=== PATIENT | female | born 1970 | race African-American/Black ===

== ENCOUNTER 2020-01-03 22:15 | Emergency (ER) | payer OTHER ==
[~2020-01-03] VITALS: Ht 165.1 cm; Wt 76.7 kg
[2020-01-03 22:31] VITALS: BP 135/51
--- NOTE | 2020-01-03 22:35 | NUR ---
PT AMBULATED TO RESTROOM WITH STEADY GAIT.
--- NOTE | 2020-01-03 22:45 | NUR ---
49 Y/O FEMALE PRESENTED TO C/O LT SIDED RIB PAIN X 3 DAYS. PT DENIES ANY TRUAMA OR INJURY TO LT SIDE. PT STATES SHE THINKS SHE MIGHT HAVE SLEPT WRONG AND TWEAKED A MUSCLE. PT STATES HER PAIN IS MORE MUSCLE PAIN THAN IN THE BONE. PT RATES PAIN 10/10 , NONRADIATING , SHARP PAIN. RR EVEN AND UNLABORED. BL CLEAR LUNG SOUNDS THROUGHOUT. PT STATES SHE HAS BEEN TAKING LIDOCAINE CREAM AND PATCHES W/ NO RELIEF. PT RESTING IN BED , LOCKED AND IN LOWEST POSITION, HOB ELEVATED, SIDE RAIL X1. VSS. PMH: ASTHMA, HTN, BOWEL OBSTRUCTION AX: IBUPROFEN
--- NOTE | 2020-01-03 23:03 | NUR ---
PT TAKEN TO XRAY VIA W/C
--- NOTE | 2020-01-03 23:35 | NUR ---
ERMD AT BEDSIDE FOR MEDICAL EVALUATION
--- NOTE | 2020-01-03 23:35 | NUR ---
EMT AT BEDSIDE FOR EKG.
--- NOTE | 2020-01-03 23:45 | NUR ---
LAB AT BEDSIDE .
--- NOTE | 2020-01-03 23:51 | NUR ---
PT STATES HER CURRENT PAIN 01/02 , ERMD MADE AWARE OF PT PAIN. PER ILIANAD ADMINISTER 30 MG IM TORADOL.
[2020-01-03] MEDS ORDERED: KETOROLAC 30 MG/ML VIAL IM ONE (23:55)
[2020-01-03 23:59] LABS: BASOPHILS # (AUTO) 0.1 K/uL (0.00-0.22); BASOPHILS % (AUTO) 0.9 % (0.0-2.0); EOSINOPHILS # (AUTO) 0.1 K/uL (0-0.4); EOSINOPHILS % (AUTO) 1.8 % (0.0-4.0); HEMATOCRIT 34.9 % (36-48); HEMOGLOBIN 11.4 g/dL (12.0-16.0); LYMPHOCYTES # (AUTO) 2.9 K/uL (2.5-16.5); LYMPHOCYTES % (AUTO) 41.6 % (20.5-51.1); MEAN CORPUSCULAR HEMOGLOBIN 28 pg (27-31); MEAN CORPUSCULAR HGB CONC 33 g/dL (33-37); MEAN CORPUSCULAR VOLUME 86.8 fL (80-94); MONOCYTES # (AUTO) 0.5 K/uL (0.8-1.0); MONOCYTES % (AUTO) 7.6 % (1.7-9.3); NEUTROPHILS # (AUTO) 3.3 K/uL (1.8-7.7); NEUTROPHILS % (AUTO) 48.1 % (42.2-75.2); PLATELET COUNT (AUTO) 289 K/uL (140-450); RED BLOOD CELL COUNT(AUTO) 4.02 MIL/uL (4.20-5.40); RED CELL DISTRIBUTION WIDTH 13.5 % (11.6-13.7); WHITE BLOOD COUNT (AUTO) 6.9 K/uL (4.8-10.8)
[2020-01-04 00:14] LABS: ALBUMIN 4.1 g/dL (3.4-5.0); ANION GAP 14.2 (8-16); CARBON DIOXIDE 27.5 mmol/L (21-32); POTASSIUM 3.7 mmol/L (3.5-5.1); TOTAL BILIRUBIN 0.1 mg/dL (0.0-1.0)
--- NOTE | 2020-01-04 00:34 | NUR ---
PT STATES TORADOL HELPED W/ PAIN - CURRENTLY RATES PAIN 09/02.
[2020-01-04 00:43] VITALS: BP 143/91
--- NOTE | 2020-01-04 00:43 | NUR ---
Patient discharged with v/s stable. Written and verbal after care instructions given and explained. Patient verbalized understanding. Ambulatory with steady gait. All questions addressed prior to discharge. Advised to follow up with PMD.
== END 2020-01-04 00:43 | disposition home or self-care (01) ==
LOC: MED 22:15
DX: R07.89 Other chest pain (principal); J45.909 Unspecified asthma, uncomplicated; I10 Essential (primary) hypertension; F17.210 Nicotine dependence, cigarettes, uncomplicated; Z71.6 Tobacco abuse counseling
CPT/HCPCS: 36415; 71111; 80053; 84484; 85025; 93005; 96372; 99285; J1885

== ENCOUNTER 2020-06-20 11:38 | Emergency (ER) | payer OTHER ==
[~2020-06-20] VITALS: Ht 160 cm; Wt 87.5 kg
[2020-06-20 11:43] VITALS: BP 135/87
[2020-06-20] MEDS ORDERED: HYDROcodone/APAP 5/325 MG 1 TAB TAB PO ONE (11:55)
[2020-06-20] MEDS ORDERED: ONDANSETRON 4 MG ODT PO ONE (11:55)
[2020-06-20] MEDS ORDERED: IBUP-2213 PO (12:36)
[2020-06-20 13:05] VITALS: BP 135/87
== END 2020-06-20 13:05 | disposition home or self-care (01) ==
LOC: MED 11:38
DX: M25.572 Pain in left ankle and joints of left foot (principal); M79.672 Pain in left foot; I10 Essential (primary) hypertension; J45.909 Unspecified asthma, uncomplicated; W10.8XXA Fall (on) (from) other stairs and steps, initial encounter; Y93.89 Activity, other specified; Y92.89 Other specified places as the place of occurrence of the external cause; Y99.8 Other external cause status
CPT/HCPCS: 73610; 99283; Q0162